=== PATIENT | male | born 1960 | race Caucasian/White ===

== ENCOUNTER → 2020-09-16 | Outpatient (CLI) | payer MEDICARE, OTHER ==
[~2020-09-16] MED LIST: ALENDRONATE SOD70 MG PO; EFFEXOR XR150 MG PO; GLUCOPHAGE500 MG PO; GLUCOTROL 10 MG10 MG PO; LISINOPRIL-HCT1 EAC1 PO; PLAVIX 75 MG TA75 MG PO; PRAVACHOL40 MG PO; RANITIDINE HCL150 MG PO; TRAZODONE HCL150 MG PO
== END ==
LOC: KOH-I 14:18
DX: M54.12 Radiculopathy, cervical region (principal); M50.31 Other cervical disc degeneration, high cervical region; M48.02 Spinal stenosis, cervical region; M43.13 Spondylolisthesis, cervicothoracic region
CPT/HCPCS: 72141

== ENCOUNTER → 2021-01-12 | Outpatient (CLI) | payer MEDICARE, OTHER | LOC: KOH-I 12-29 13:00 | DX: F17.210 Nicotine dependence, cigarettes, uncomplicated (principal); J98.4 Other disorders of lung | CPT/HCPCS: 71271 ==

== ENCOUNTER → 2022-01-12 | Outpatient (CLI) | payer MEDICARE, OTHER ==
[2022-01-13 17:08] LABS: ENDOMYSIAL ANTIBODY IGA Negative (Negative); IMMUNOGLOBULIN A, QN, SERUM 327 mg/dL (61-437); T-TRANSGLUTAMINASE (TTG) IGA <2 U/mL (0-3)
== END ==
LOC: RT 13:03
PROVIDERS: Physician Assistant Surgical
DX: I25.10 Atherosclerotic heart disease of native coronary artery without angina pectoris (principal); I10 Essential (primary) hypertension; R19.7 Diarrhea, unspecified; R94.31 Abnormal electrocardiogram [ECG] [EKG]
CPT/HCPCS: 36415; 82784; 93005